=== PATIENT | female | born 1975 | race Caucasian/White ===

== ENCOUNTER 2018-06-06 09:42 | Emergency (ER) | payer SELFPAY ==
--- NOTE | 2018-06-06 09:46 | PDOC ---
History of Present Illness - General Chief Complaint: Pain Stated Complaint: LOWER ABDOMINAL PAIN Time Seen by Provider: 06/06/18 09:45 - History of Present Illness Initial Comments: 42yo F with PMH of cholecystectomy, pancreatitis, digestive issues presenting with lower abdominal pain and foul vaginal smell. Patient reports perimenopausal symptoms such as hot flashes, irregular menstrual periods (about every two months, last 04/28/18), and breast tenderness. She endorses vaginal spotting yesterday and a sensation of 'dripping.' Patient has not noticed abnormal discharge but describes a foul smell emanating from her genital area. She has this 'dripping' sensation before and was prescribed vaginal creams/gels by her addiction social worker for such, but she has never noticed a foul smell. Patient reports a one-off unprotected sexual encounter with her ex- who she is no longer with and requests STI testing. Has never had an STI before. Her abdominal pain is suprapubic and described as a 'discomfort.' Last bowel movement was yesterday and was a normal formed brown stool without blood. No fevers, chills, chest pain, shortness of breath, dysuria, or hematuria. Past History - Past Medical History Allergies/Adverse Reactions: Allergies Allergy/AdvReac Type Severity Reaction Status Date / Time meperidine HCl [From Demerol] Allergy Severe Difficulty Verified 06/06/18 09:53 Breathing clarithromycin [From Biaxin] Allergy Unknown Rash Verified 06/06/18 09:54 CODINE AdvReac Uncoded 06/06/18 09:55 Home Medications: Ambulatory Orders Fluoxetine HCl [Prozac] 40 mg PO DAILY 01/21/15 Metoprolol Succinate [Toprol Xl] 25 mg PO DAILY 06/06/18 metroNIDAZOLE 0.75% VAG. GEL [Metrogel 0.75% *Vaginal Gel* -] 1 applic VG HS #1 tube 06/06/18 - Suicide/Smoking/Psychosocial Hx Smoking History: Current every day smoker Have you smoked in the past 12 months: Yes Number of Cigarettes Smoked Daily: 10 'Breaking Loose' booklet given: 01/21/15 Hx Alcohol Use: No Drug/Substance Use Hx: No Substance Use Type: None Review of Systems - Review of Systems Comments:: Constitutional: no fever, no chills HEENT: no throat pain, no dysphagia Cardiovascular: no chest pain, no palpitations Respiratory: no cough, no shortness of breath Gastrointestinal: +abdominal pain, no diarrhea, no constipation Genitourinary: no dysuria, no frequency, +foul smell, +spotting Musculoskeletal: no myalgia, no arthralgia Skin: no rash, no itching Neurologic: +headache, no dizziness *Physical Exam - Physical Exam Comments: General: Awake, alert, and fully oriented, anxious Head: No signs of trauma Eyes: EOMI, sclera anicteric ENT: Moist mucus membranes Neck: Normal ROM, supple Lungs: Lungs clear, Normal breath sounds Cardio: Regular rhythm, S1 and S2 present Abdomen: Minor tenderness to palpation suprapubically. Soft, nondistended. No guarding, no rebound, no masses. Bellybutton ring present. Extremities: Normal range of motion, Distal pulses present SKIN: Warm, Dry, normal turgor Neurologic: Cranial nerves II through XII grossly intact. Normal speech Pelvic: External genitalia without erythema, exudate or discharge. Vaginal vault is with white physiologic discharge. Cervix is of normal color without lesion. The os is closed. Scant blood noted at the cervical os. Uterus is noted to be of normal size and nontender. No cervical motion tenderness is seen. No masses are palpated. The adnexa are without masses or tenderness. Medical Decision Making - Medical Decision Making 42yo F with PMH of cholecystectomy, pancreatitis, digestive issues presenting with lower abdominal pain and foul vaginal smell. DDX includes but not limited to , STI, BV, UTI, ovarian cyst, abdominal pathology (appendicitis, diverticulitis, pancreatitis, nephrolithiasis ) Do not suspect abdominal pathology at this time given only minor suprapubic tenderness. History and physical consistent with bacterial vaginosis. Metronidazole gel sent to pharmacy. test negative. UA negative. Sent GC test, however as it takes 2 days to result, call back noted in chart. Offered medicine for patient's headache, but she declined. Patient discharged 06/06/18 12:47 *DC/Admit/Observation/Transfer Diagnosis at time of Disposition: Bacterial vaginosis - Discharge Dispostion Disposition: HOME Condition at time of disposition: Stable - Prescriptions Prescriptions: metroNIDAZOLE 0.75% VAG. GEL [Metrogel 0.75% *Vaginal Gel* -] 1 applic VG HS #1 tube - Referrals Schedule a call back: GC result - Patient Instructions Printed Discharge Instructions: DI for Bacterial Vaginosis Additional Instructions: You were seen in the Emergency Department. Urinalysis was normal. test was negative. Prescription sent to your pharmacy. Apply once nightly for five days. Follow-up with your desulfurizer hand specialist if your symptoms do not improve in 5 days. Call and make an appointment. Follow-up with your primary care provider in the next 5-7 days to discuss this visit and to further evaluate your symptoms. Your visit is not complete until you do so. Call and make an appointment. Return to the Emergency Department if you experience: -heavy bleeding (more than two pads per hour for two hours) -severe pain -lightheadedness -shortness of breath -high fever -any other concerning symptoms - Post Discharge Activity Forms/Work/School Notes: Back to Work
--- NOTE | 2018-06-06 10:08 | PDOC ---
Attending Attestation - Resident Resident Name: Frances Connor - ED Attending Attestation I have performed the following: I have examined & evaluated the patient, The case was reviewed & discussed with the resident, I agree w/resident's findings & plan - HPI HPI: 06/06/18 11:17 Pt comes with vaginal odor and discharge after sexual encounter with an ex. She is worried that she may have STD; she also is worried that this may be cancer. She has had BV and vaginal yeast infections in the past. She has no other complaints. NO abd pain. No fever and no dysuria. She had an LMP in Apr 28. - Physicial Exam PE: 06/06/18 11:19 Agree with resident exam. + white/clear fluid in the vag vault; cervix normal. ( GC chlamydia cx sent) No CMT; no adnexal tenderness. No rashes in perineum No flank pain. no abd pain. - Medical Decision Making 06/06/18 11:20 UA normal; GC pending. Pt will be treated with metrogel fr BV; she was asked to follow with [facility] for uterine sono/to address fears of cancer. Pt's GC/chlamydia cx pending.
[2018-06-06 10:29] VITALS: BP 113/69; PULSE 66; TEMP 99; BMI 62.4
[2018-06-06 10:59] LABS: PH,URINE 6.5 (4.5-8); URINE APPEARANCE Clear; URINE BILIRUBIN Negative (NEGATIVE); URINE COLOR Amber; URINE GLUCOSE (UA) Negative (NEGATIVE); URINE KETONE Negative (NEGATIVE); URINE LEUK ESTERASE Negative (NEGATIVE); URINE NITRITE Negative (NEGATIVE); URINE PROTEIN Negative (NEGATIVE); URINE UROBILINOGEN 0.2 (0.2-1.0)
[2018-06-06 11:05] LABS: HCG,QUALITATIVE URINE Negative
== END 2018-06-06 11:28 | disposition home or self-care (01) ==
LOC: FER 09:42
DX: N76.0 Acute vaginitis (principal); F17.210 Nicotine dependence, cigarettes, uncomplicated
CPT/HCPCS: 36415; 81003; 84703; 87086; 87491; 87591; 99282-25

== ENCOUNTER 2020-10-03 12:04 | Emergency (ER) | payer BC, OTHER ==
[2020-10-03 12:19] VITALS: BMI 33.6
[2020-10-03 17:36] VITALS: BP 134/80; PULSE 64; TEMP 97.6
== END 2020-10-03 16:36 | disposition home or self-care (01) ==
LOC: JER 12:04
DX: M79.661 Pain in right lower leg (principal)
CPT/HCPCS: 93971-TC; 99284-25

== ENCOUNTER 2021-05-07 15:43 | Emergency (ER) | payer BC, OTHER ==
[2021-05-07 16:06] VITALS: BP 131/62; PULSE 103; TEMP 97.7; BMI 34.0
== END 2021-05-07 18:16 | disposition home or self-care (01) ==
LOC: JERFT 15:43 → JER 15:43 → JERFT 18:16
DX: B02.9 Zoster without complications (principal)
CPT/HCPCS: 99281-25

== ENCOUNTER 2021-11-01 14:47 | Emergency (ER) | payer BC, OTHER ==
[2021-11-01 15:13] VITALS: BP 155/79; PULSE 80; TEMP 98.2; BMI 32.8
[2021-11-01] MEDS ORDERED: LIDOCAINE 5% TOPICAL PATCH TP ONE (15:40)
[2021-11-01] MEDS ORDERED: METHOCARBAMOL 500 MG TABLET PO ONE (15:40)
[2021-11-01] MEDS ORDERED: KETOROLAC TROMETHAMINE 15 MG/ML VIAL IM ONE (15:40)
[2021-11-01] MEDS ORDERED: LIDOCAINE 5% TOPICAL PATCH ONE (15:44)
[2021-11-01] MEDS ORDERED: METHOCARBAMOL 500 MG TABLET ONE (15:44)
[2021-11-01] MEDS ORDERED: KETOROLAC TROMETHAMINE 15 MG/ML VIAL ONE (15:44)
[2021-11-01 16:15] LABS: URINE APPEARANCE CLEAR; URINE BILIRUBIN NEGATIVE (NEGATIVE); URINE COLOR YELLOW; URINE GLUCOSE (UA) NEGATIVE (NEGATIVE); URINE KETONE NEGATIVE (NEGATIVE); URINE LEUK ESTERASE NEGATIVE (NEGATIVE); URINE NITRITE NEGATIVE (NEGATIVE); URINE PROTEIN NEGATIVE (NEGATIVE); URINE UROBILINOGEN 0.2 mg/dL (0.2-1.0)
[2021-11-01] MEDS ORDERED: LIDOCAINE PATCH REMOVAL MC SCH (22:00)
== END 2021-11-01 16:39 | disposition home or self-care (01) ==
LOC: JER 14:47 → JERFT 14:47
PROC: 3E0233Z Introduction of Anti-inflammatory into Muscle, Percutaneous Approach (ICD-10-PCS; principal; 2021-11-01)
DX: M54.50 Low back pain, unspecified (principal)
CPT/HCPCS: 72100-TC-FY; 81003; 87086; 99284-25

== ENCOUNTER 2022-05-08 12:45 | Emergency (ER) | payer BC, OTHER ==
[2022-05-08 13:16] VITALS: RESP 18; BMI 29.2
[2022-05-08] MEDS ORDERED: ACETAMINOPHEN 500 MG TABLET (FP) PO ONE (13:48)
[2022-05-08] MEDS ORDERED: ACETAMINOPHEN 500 MG TABLET (FP) ONE (13:57)
[2022-05-08 15:01] VITALS: BP 140/65; PULSE 69; TEMP 98.1
== END 2022-05-08 15:09 | disposition home or self-care (01) ==
LOC: JER 12:45
DX: U07.1 COVID-19 (principal)
CPT/HCPCS: 0241U-QW; 71046-TC-FY; 99284-25

== ENCOUNTER 2022-08-22 13:51 | Observation (INO) | payer BC, OTHER ==
[2022-08-22 13:55] VITALS: RESP 18
[2022-08-22] MEDS ORDERED: ACETAMINOPHEN 325 MG TABLET (FP) PO ONE (14:32)
[2022-08-22] MEDS ORDERED: MECLIZINE HCL 25 MG TABLET (FP) PO ONE (14:32)
[2022-08-22] MEDS ORDERED: ACETAMINOPHEN 1000 MG/100 ML BAG IVPB ONE (14:33)
[2022-08-22] MEDS ORDERED: MECLIZINE HCL 25 MG TABLET (FP) ONE (14:40)
[2022-08-22] MEDS ORDERED: ACETAMINOPHEN INJECTION 100 ML IVPB ONE (14:41)
[2022-08-22] MEDS ORDERED: FAMOTIDINE 20 MG/50 ML IVPB 20 MG/50 ML MG IVPB ONE (14:50)
[2022-08-22] MEDS ORDERED: MAG HYDROX/AL HYDROX/SIMETH 30 ML UNIT-DOSE CUP PO ONE (14:50)
[2022-08-22] MEDS ORDERED: FAMOTIDINE 10 MG/ML VIAL IVPB ONE (14:55)
[2022-08-22] MEDS ORDERED: MAG HYDROX/AL HYDROX/SIMETH 30 ML UNIT-DOSE CUP ONE (14:55)
[2022-08-22 15:06] LABS: BASO % 0.6 % (0-2.0); EOS % 1.2 % (0-4.5); HEMATOCRIT 40.7 % (32.4-45.2); HEMOGLOBIN 13.8 GM/dL (10.7-15.3); LYMPH % 29.6 % (8-40); MCH 30.1 pg (25.7-33.7); MEAN CELL VOLUME 88.6 fl (80-96); MONO % 7.7 % (3.8-10.2); NEUT % 60.9 % (42.8-82.8); PLATELET COUNT 249 10^3/uL (134-434); RBC 4.59 M/mm3 (3.60-5.2); RDW 12.7 % (11.6-15.6); WHITE BLOOD COUNT 7.8 K/mm3 (4.0-10.0)
[2022-08-22 15:29] LABS: POTASSIUM 4.3 mmol/L (3.5-5.1)
[2022-08-22 15:31] LABS: CALCIUM 9.1 mg/dL (8.5-10.1)
[2022-08-22 15:32] LABS: ALBUMIN 3.7 g/dl (3.4-5.0); BLOOD UREA NITROGEN 13.2 mg/dL (7-18); MAGNESIUM 2.1 mg/dL (1.8-2.4)
[2022-08-22 15:35] LABS: CREATININE 0.7 mg/dL (0.55-1.3)
[2022-08-22 15:36] LABS: BILIRUBIN,TOTAL 0.2 mg/dL (0.2-1)
[2022-08-22 15:37] LABS: TOT PROT 7.3 g/dl (6.4-8.2)
[2022-08-22 15:39] LABS: N-TERMINAL BNP 51.2 pg/ml (5-125)
[2022-08-22] MEDS ORDERED: LIDOCAINE 5% TOPICAL PATCH TP ONE (16:38)
[2022-08-22] MEDS ORDERED: KETOROLAC TROMETHAMINE 15 MG/ML VIAL IVPUSH ONE (16:38)
[2022-08-22] MEDS ORDERED: LIDOCAINE 5% TOPICAL PATCH ONE (17:42)
[2022-08-22] MEDS ORDERED: KETOROLAC TROMETHAMINE 15 MG/ML VIAL ONE (17:43)
[2022-08-22 19:02] LABS: PH,URINE 5.5 (5.0-8.0); URINE APPEARANCE CLEAR; URINE BILIRUBIN NEGATIVE (NEGATIVE); URINE COLOR YELLOW; URINE GLUCOSE (UA) NEGATIVE (NEGATIVE); URINE KETONE NEGATIVE (NEGATIVE); URINE LEUK ESTERASE NEGATIVE (NEGATIVE); URINE NITRITE NEGATIVE (NEGATIVE); URINE PROTEIN NEGATIVE (NEGATIVE); URINE UROBILINOGEN 0.2 mg/dL (0.2-1.0)
[2022-08-22] MEDS ORDERED: DOCUSATE SODIUM 100 MG CAPSULE (FP) PO PRN (20:07)
[2022-08-22] MEDS ORDERED: ACETAMINOPHEN 1000 MG/100 ML BAG IVPB PRN (20:10)
[2022-08-22] MEDS ORDERED: ACETAMINOPHEN 325 MG TABLET (FP) PO PRN (20:10)
[2022-08-22] MEDS ORDERED: LIDOCAINE PATCH REMOVAL MC SCH (22:00)
[2022-08-23 01:16] VITALS: BMI 33.8
[2022-08-23] MEDS ORDERED: MECLIZINE HCL 12.5 MG TABLET PO PRN (07:40)
[2022-08-23 08:36] LABS: BASO % 0.5 % (0-2.0); EOS % 1.4 % (0-4.5); HEMATOCRIT 40.4 % (32.4-45.2); LYMPH % 36.5 % (8-40); MCH 30.6 pg (25.7-33.7); MCHC 34.7 g/dl (32.0-36.0); MEAN CELL VOLUME 88.3 fl (80-96); MEAN PLT VOLUME 8.3 fl (7.5-11.1); MONO % 7.1 % (3.8-10.2); NEUT % 54.5 % (42.8-82.8); PLATELET COUNT 251 10^3/uL (134-434); RBC 4.57 M/mm3 (3.60-5.2); RDW 12.7 % (11.6-15.6); WHITE BLOOD COUNT 6.9 K/mm3 (4.0-10.0)
[2022-08-23 09:01] LABS: POTASSIUM 4.6 mmol/L (3.5-5.1)
[2022-08-23 09:16] LABS: BLOOD UREA NITROGEN 12.6 mg/dL (7-18); CALCIUM 9.3 mg/dL (8.5-10.1)
[2022-08-23 09:20] LABS: CREATININE 0.6 mg/dL (0.55-1.3)
[2022-08-23] MEDS ORDERED: CARVEDILOL 12.5 MG TABLET (FP) PO SCH (10:00)
[2022-08-23] MEDS ORDERED: HYDROCHLOROTHIAZIDE 12.5 MG CAPSULE (FP) PO SCH (10:00)
[2022-08-23] MEDS ORDERED: amLODIPine BESYLATE 5 MG TABLET (FP) PO SCH (10:00)
[2022-08-23] MEDS ORDERED: LISINOPRIL 20 MG TABLET PO SCH (10:00)
[2022-08-23] MEDS ORDERED: VENLAFAXINE HCL 75 MG E.R. CAPSULES PO SCH (10:00)
[2022-08-23 10:51] VITALS: BP 126/61; PULSE 78; TEMP 98.2
[2022-08-23] MEDS ORDERED: POTASSIUM CHLORIDE ORAL LIQUID 20 MEQ/15 ML PO ONE (13:20)
[2022-08-23] MEDS ORDERED: ATORVASTATIN CA 20 MG TABLET (FP) PO SCH (22:00)
[2022-08-23] MEDS ORDERED: HEPARIN NA (PORCINE) 5,000 UNITS/ML 1ML VIAL SQ SCH (22:00)
== END 2022-08-23 18:35 | disposition home or self-care (01) ==
LOC: JER 13:51 → JERBED 19:55 → J4W 08-23 00:41
PROVIDERS: ADMIT Internal Medicine; ATTEND Internal Medicine
PROC: 3E033NZ Introduction of Analgesics, Hypnotics, Sedatives into Peripheral Vein, Percutaneous Approach (ICD-10-PCS; principal; 2022-08-22)
PROC: 3E033GC Introduction of Other Therapeutic Substance into Peripheral Vein, Percutaneous Approach (ICD-10-PCS; 2022-08-22)
DX: R07.89 Other chest pain (principal); F32.A Depression, unspecified; E78.5 Hyperlipidemia, unspecified; Z87.891 Personal history of nicotine dependence; I10 Essential (primary) hypertension; Z68.33 Body mass index [BMI] 33.0-33.9, adult; E66.8 Other obesity; Z88.8 Allergy status to other drugs, medicaments and biological substances; Z88.6 Allergy status to analgesic agent
CPT/HCPCS: 0241U-QW; 36415; 70450-TC; 71045-TC-FY; 80048; 80053; 81003; 83690; 83735; 83880; 84484; 85025; 87086; 93005; 93010; 96365; 96375; 99285-25; G0378

== ENCOUNTER 2023-08-14 09:11 | Emergency (ER) | payer BC, OTHER ==
[2023-08-14 09:14] VITALS: BP 177/90; PULSE 89; RESP 18; TEMP 98.6; BMI 31.8
[2023-08-14] MEDS ORDERED: ACETAMINOPHEN 500 MG TABLET (FP) ONE (09:37)
[2023-08-14] MEDS: ACETAMINOPHEN 500 MG TABLET (FP) PO ONE (09:38)
[2023-08-14] MEDS ORDERED: LIDOCAINE 4% PATCH TP ONE (09:52)
[2023-08-14] MEDS: LIDOCAINE 4% PATCH TP ONE (09:55)
[2023-08-14] MEDS ORDERED: LIDOCAINE PATCH REMOVAL MC SCH (22:00)
== END 2023-08-14 14:08 | disposition home or self-care (01) ==
LOC: JER 09:11 → JERFT 09:11
DX: M25.552 Pain in left hip (principal); G89.29 Other chronic pain
CPT/HCPCS: 73502-TC-LT-FY; 99283-25

== ENCOUNTER 2024-07-12 05:45 | Day surgery (SDC) | payer BC, OTHER ==
[2024-07-09 14:08] VITALS: BMI 32.1
[2024-07-12] MEDS ORDERED: LIDOCAINE HCL/PF 1% SDV 5ML VIAL ONE (07:56)
[2024-07-12] MEDS ORDERED: DEXAMETHASONE SOD PHOSPHATE 10 MG/1 ML VIAL ONE (07:57)
[2024-07-12 11:45] VITALS: RESP 18
[2024-07-12 14:15] VITALS: BP 131/81; PULSE 76; TEMP 97.6
== END 2024-07-12 14:10 | disposition home or self-care (01) ==
LOC: JASU-SURG 05:45
PROVIDERS: ATTEND Pain Medicine Pain Medicine
PROC: 3E0R3BZ Introduction of Anesthetic Agent into Spinal Canal, Percutaneous Approach (ICD-10-PCS; 2024-07-12)
PROC: 3E0R33Z Introduction of Anti-inflammatory into Spinal Canal, Percutaneous Approach (ICD-10-PCS; principal; 2024-07-12 13:00)
DX: M54.16 Radiculopathy, lumbar region (principal)
CPT/HCPCS: 76000-TC-FY; J1100